=== PATIENT | female | born 1995 | race Caucasian/White ===

== ENCOUNTER 2017-11-06 15:14 | Emergency (ER) | payer OTHER ==
[2017-11-06] MEDS ORDERED: MIRENA (15:21)
--- NOTE | 2017-11-06 15:25 | ER Report ---
History and Physical Time Seen By MD: 15:16 Hx. of Stated Complaint: LOST VISION AND HEARING, NAUSEA, PT THINKS SHE MIGHT BE DEHYDRATED HPI/ROS CHIEF COMPLAINT: Dehydration, and lost vision and hearing HISTORY OF PRESENT ILLNESS: 22-year-old female patient presents to emergency room with complaint of dehydration and having lost vision and hearing transiently. Patient states that she was at the football game. She states she did have some alcohol prior to the game. She states there is sitting in the sun and she felt lightheaded and nauseated. She requested that I go criminal records technician the shade for a little bit. She states all other walking to the shave that she lost vision and hearing for short period of time. She states that she has been nauseated since she started drinking. She states that she is currently sexually active but denies being and she uses an IUD. She denies any vomiting or diarrhea. REVIEW OF SYSTEMS: Respiratory: No cough, no dyspnea. Cardiovascular: No chest pain, no palpitations. Gastrointestinal: As noted above Musculoskeletal: No back pain. Allergies: Coded Allergies: No Known Drug Allergies (Unverified , 11/06/17) Home Meds Reported Medications [Mirena] No Conflict Check 11/06/17 Past Medical/Surgical History Patient has a past medical history of eczema. Patient denies any surgical history. Reviewed Nurses Notes: Yes Constitutional Vital Sign - Last 24 Hours 11/06/17 11/06/17 11/06/17 11/06/17 15:15 15:16 15:30 15:45 Temp 98.6 Pulse 133 127 120 119 Resp 16 B/P (MAP) 140/93 121/75 (90) Pulse Ox 95 97 97 96 O2 Delivery Room Air 11/06/17 11/06/17 11/06/17 11/06/17 16:00 16:15 16:30 16:40 Pulse 111 105 B/P (MAP) 121/91 (101) 113/65 (81) 117/75 (89) Pulse Ox 97 97 Physical Exam General Appearance: The patient is alert, has no immediate need for airway protection and no current signs of toxicity. Respiratory: Chest is non tender, lungs are clear to auscultation. Cardiac: regular rate and rhythm Gastrointestinal: Abdomen is soft and non tender, no masses, bowel sounds normal. Musculoskeletal: Neck: Neck is supple and non tender. Extremities have full range of motion and are non tender. Skin: No rashes or lesions. Patient does have some eczema to the left antecu bital area as well as a rash on the underside neck. She states she has had that prior to this episode. DIFFERENTIAL DIAGNOSIS: After history and physical exam differential diagnosis was considered for dehydration, , alcohol intoxication. Medical Decision Making Data Points Result Diagram: 11/06/17 1539 11/06/17 1539 Laboratory Hematology Test 11/06/17 15:39 Red Blood Count 4.60 M/uL (4.17-5.56) Mean Corpuscular Volume 89.5 fL (80.0-96.0) Mean Corpuscular Hemoglobin 31.0 pg (26.0-33.0) Mean Corpuscular Hemoglobin Concent 34.7 g/dL (32.0-36.0) Red Cell Distribution Width 12.3 % (11.5-14.5) Mean Platelet Volume 8.0 fL (7.2-11.1) Neutrophils (%) (Auto) 73.7 % (39.4-72.5) Lymphocytes (%) (Auto) 18.7 % (17.6-49.6) Monocytes (%) (Auto) 6.6 % (4.1-12.4) Eosinophils (%) (Auto) 0.6 % (0.4-6.7) Basophils (%) (Auto) 0.4 % (0.3-1.4) Nucleated RBC Relative Count (auto) 0.1 /100WBC Neutrophils # (Auto) 6.8 K/uL (2.0-7.4) Lymphocytes # (Auto) 1.7 K/uL (1.3-3.6) Monocytes # (Auto) 0.6 K/uL (0.3-1.0) Eosinophils # (Auto) 0.1 K/uL (0.0-0.5) Basophils # (Auto) 0.0 K/uL (0.0-0.1) Nucleated RBC Absolute Count (auto) 0.01 K/uL Sodium Level 141 mmol/L (137-145) Potassium Level 3.7 mmol/L (3.5-5.0) Chloride Level 106 mmol/L (98-107) Carbon Dioxide Level 22 mmol/L (22-31) Blood Urea Nitrogen 14 mg/dl (7-18) Creatinine 0.90 mg/dl (0.52-1.04) Glomerular Filtration Rate Calc > 60.0 Random Glucose 93 mg/dl (75-110) Calcium Level 8.6 mg/dl (8.4-10.2) Total Bilirubin 0.7 mg/dl (0.2-1.3) Aspartate Amino Transf (AST/SGOT) 14 U/L (0-35) Alanine Aminotransferase (ALT/SGPT) 24 U/L (0-56) Alkaline Phosphatase 38 U/L (0-126) Total Protein 6.3 g/dl (6.3-8.2) Albumin 4.0 g/dl (3.5-5.0) Human Chorionic Gonadotropin, Qual Negative (NEGATIVE) Serum Alcohol < 10 mg/dl Chemistry Test 11/06/17 15:39 White Blood Count 9.2 k/uL (4.5-11.0) Red Blood Count 4.60 M/uL (4.17-5.56) Hemoglobin 14.3 g/dL (12.0-16.0) Hematocrit 41.2 % (34.0-47.0) Mean Corpuscular Volume 89.5 fL (80.0-96.0) Mean Corpuscular Hemoglobin 31.0 pg (26.0-33.0) Mean Corpuscular Hemoglobin Concent 34.7 g/dL (32.0-36.0) Red Cell Distribution Width 12.3 % (11.5-14.5) Platelet Count 260 K/uL (150-450) Mean Platelet Volume 8.0 fL (7.2-11.1) Neutrophils (%) (Auto) 73.7 % (39.4-72.5) Lymphocytes (%) (Auto) 18.7 % (17.6-49.6) Monocytes (%) (Auto) 6.6 % (4.1-12.4) Eosinophils (%) (Auto) 0.6 % (0.4-6.7) Basophils (%) (Auto) 0.4 % (0.3-1.4) Nucleated RBC Relative Count (auto) 0.1 /100WBC Neutrophils # (Auto) 6.8 K/uL (2.0-7.4) Lymphocytes # (Auto) 1.7 K/uL (1.3-3.6) Monocytes # (Auto) 0.6 K/uL (0.3-1.0) Eosinophils # (Auto) 0.1 K/uL (0.0-0.5) Basophils # (Auto) 0.0 K/uL (0.0-0.1) Nucleated RBC Absolute Count (auto) 0.01 K/uL Glomerular Filtration Rate Calc > 60.0 Calcium Level 8.6 mg/dl (8.4-10.2) Total Bilirubin 0.7 mg/dl (0.2-1.3) Aspartate Amino Transf (AST/SGOT) 14 U/L (0-35) Alanine Aminotransferase (ALT/SGPT) 24 U/L (0-56) Alkaline Phosphatase 38 U/L (0-126) Total Protein 6.3 g/dl (6.3-8.2) Albumin 4.0 g/dl (3.5-5.0) Human Chorionic Gonadotropin, Qual Negative (NEGATIVE) Serum Alcohol < 10 mg/dl Toxicology Test 11/06/17 15:39 Serum Alcohol < 10 mg/dl EKG/Imaging EKG Interpretation 12 lead EKG: Rhythm: Sinus tachycardia, ventricular rate of 119 beats for minute [place]: Rightward axis QRS: normal ST segments: normal Imaging 2 VIEWS CHEST INDICATION: Lightheadedness. COMPARISON: None available FINDINGS: Cardiomediastinal silhouette and pulmonary vessels within normal limits. There is no focal infiltrate or lobar consolidation. There is no pneumothorax or pleural effusion. No nodule. Upper abdomen is unremarkable. No acute bony abnormality. IMPRESSION: 1. No acute cardiopulmonary process. Report Dictated By: Garcia Smith at 11/06/2017 4:20 PM Report E-Signed By: Garcia Smith at 11/06/2017 4:21 PM ED Course/Re-evaluation ED Course Patient was admitted to an exam room, history and physical were obtained. Differential diagnoses were considered. On examination lungs are clear, heart was regular although tachycardia, abdomen was soft nontender. A CBC, CMP, EKG, chest x-ray were done. Lab results were unremarkable. EKG showed a sinus tachycardia. Chest x-ray showed no acute cardiopulmonary processes. Patient did receive 2 L of normal saline. On reexamination patient states she feels fine. States she feels like she is ready go home. We will go ahead and discharge patient home at this time. I discussed lab findings with her and her to follow- up with her primary care provider with any concerns. Patient verbalized understanding and agreement. Decision to Disposition Date: Nov 06, 2017 Decision to Disposition Time: 16:39 Depart Departure Latest Vital Signs Vital Signs Date Time Temp Pulse Resp B/P (MAP) Pulse Ox O2 Delivery O2 Flow Rate FiO2 11/06/17 16:40 117/75 (89) 11/06/17 16:30 105 97 11/06/17 15:16 98.6 16 Room Air Impression: Primary Impression: Dehydration Condition: Improved Disposition: HOME OR SELF-CARE Patient Instructions: Dehydration (ED) Additional Instructions: Increase fluid intake. Get plenty of rest. Limit time in the sun. Continue with normal activities. Follow up with [facility] if you have any concerns. Return to the ER if condition worsens. MIKE VÁZQUEZ Nov 06, 2017 15:25
[2017-11-06] MEDS ORDERED: EMS NS 0.9%(*) 1000 ML BAG 1,000 ML IV ONE (15:40)
[2017-11-06] MEDS ORDERED: NS(*) 0.9% 1000 ML BAG 1,000 ML IV ONE (15:40)
[2017-11-06 15:54] LABS: PLATELET COUNT, AUTOMATED 260 K/uL (150-450)
--- NOTE | 2017-11-06 16:24 | RADIOLOGY IMAGING REPORT ---
FACILITY: [facility] PATIENT NAME: Loren Hawley : 1995 MR: [id number] V: [id number] EXAM DATE: ORDERING PHYSICIAN: MKIE VÁZQUEZ TECHNOLOGIST: Location: Patient: Loren Hawley : 1995 Visit/Account:[id number] Date of Sevice: 11/06/2017 2 VIEWS CHEST INDICATION: Lightheadedness. COMPARISON: None available FINDINGS: Cardiomediastinal silhouette and pulmonary vessels within normal limits. There is no focal infiltrate or lobar consolidation. There is no pneumothorax or pleural effusion. No nodule. Upper abdomen is unremarkable. No acute bony abnormality. IMPRESSION: 1. No acute cardiopulmonary process. Report Dictated By: Garcia Smith at 11/06/2017 4:20 PM Report E-Signed By: Garcia Smith at 11/06/2017 4:21 PM WSN:[id number]
[2017-11-06 16:40] VITALS: BP 117/75
--- NOTE | 2017-11-06 17:22 | EKG ---
FACILITY: [facility] PATIENT NAME: YVETTE STREETER : [id number] MR: [id number] V: [id number] EXAM DATE: ORDERING PHYSICIAN: MIKE VÁZQUEZ TECHNOLOGIST: ABDIRASHID Lambert Reason : Blood Pressure : / mmHG Vent. Rate : 119 BPM Atrial Rate : 119 BPM P-R Int : 172 ms QRS Dur : 080 ms QT Int : 320 ms P-R-T Axes : 071 091 020 degrees QTc Int : 450 ms Sinus tachycardia Possible Left atrial enlargement Rightward axis T flattening consistent with inferior ischemia vs normal variant No previous ECGs available Confirmed by ERIN JONES ([id number]) on 11/06/2017 6:50:37 PM Referred By: GURPREET Confirmed By:ERIN JONES
== END 2017-11-06 16:44 | disposition home or self-care (01) ==
LOC: ER 15:24
DX: E86.0 Dehydration (principal)
CPT/HCPCS: 36415; 71046; 80320; 84703; 85025; 93005; 96360; 99284; J7030; 82040; 82247; 82310; 82374; 82435; 82565; 82947; 84075; 84132; 84155; 84295; 84450; 84460; 84520

== ENCOUNTER → 2017-11-06 | Outpatient (CLI) | payer OTHER ==
[~2017-11-06] MED LIST: MIRENA
== END ==
LOC: AMB 14:58
PROVIDERS: ATTEND Nurse Practitioner
DX: R53.1 Weakness (principal); R53.83 Other fatigue; Z72.89 Other problems related to lifestyle
CPT/HCPCS: A0425; A0427

== ENCOUNTER → 2018-09-07 | Outpatient (CLI) | payer OTHER ==
--- NOTE | 2018-09-12 09:40 | RT HOLTER TEST ---
FACILITY: [facility] [place] PATIENT NAME: YVETTE STREETER : [id number] MR: [id number] V: [id number] EXAM DATE: ORDERING PHYSICIAN: JUDY PETERS TECHNOLOGIST: CORNELL Hook-up date: 2018-09-07 15:20:00 Duration: 47:59:00 Test Indications: PALPITATIONS, TACHYCARDIA Medications: N/A [id number] QRS complexes 5 Ventricular ectopics which represent <1 % of total QRS comp. * Supraventricular ectopics which represent % of total QRS comp. * Paced QRS complexes which represent % of total QRS comp. VENTRICULAR ECTOPY 5 Isolated 0 Bigeminal Cycles 0 Couplets 0 Runs 0 Beats in Runs * Beats LONGEST at * BPM at :: -- * Beats FASTEST at * BPM at :: -- SUPRAVENTRICULAR ECTOPY * Isolated * Couplets * Runs * Beats in Runs * Beats LONGEST at * BPM at :: -- * Beats FASTEST at * BPM at :: -- HEART RATES 45 MIN at 04:41:22 2018-09-08 87 AVG 164 MAX at 06:52:00 2018-09-08 LONGEST RR 1.456 secs at 23:14:31 2018-09-08 S-T LEVELS Channel 1 -12.800 mm MIN at 15:20:00 2018-09-07 -12.800 mm MAX at 15:20:00 2018-09-07 Channel 2 -12.800 mm MIN at 15:20:00 2018-09-07 -12.800 mm MAX at 15:20:00 2018-09-07 Channel 3 -12.800 mm MIN at 15:20:00 2018-09-07 -12.800 mm MAX at 15:20:00 2018-09-07 Appears to be fairly frequent supraventricular ectopy with possible competing ectopic atrial focus. Rare ventricular ectopy. No couplets, triplets, runs. No pauses were recorded. Confirmed by VICKIE LOMELI ([id number]) on 09/12/2018 9:37:10 AM Referred By: Overread By: VICKIE LOMELI
== END ==
LOC: RESP 14:58
PROVIDERS: ATTEND Nurse Practitioner Family
DX: R00.0 Tachycardia, unspecified (principal); R00.2 Palpitations
CPT/HCPCS: 93225; 93226